=== PATIENT | female | born 1950 | race Caucasian/White ===

== ENCOUNTER 2016-06-21 01:28 | Observation (INO) | payer OTHER, BC ==
[~2016-06-21] VITALS: Ht 165.1 cm; Wt 68.0 kg
[~2016-06-21 01:28] MED LIST: ADVAIR HFA120 INHALA IH; ALDACTONE50 MG PO; AMIODARONE HCL200 MG PO; AMOX TR-K CLV1 EAC4 PO; ASPIR 8181 M1 PO; ASPIR-LOW81 MG PO; ASPIRIN EC325 MG PO; ASPIRIN PO; ATACAND8 MG PO; ATORVASTATIN CA40 MG PO; AZITHROMYCIN250 MG PO; Aspirin E.C. PO; CANDESARTAN CILE8 MG PO; CARVEDILOL12.5 MG PO; CARVEDILOL6.25 MG PO; CEFEPIME HCL2 GM IV; CITROMA296 ML PO; CLOPIDOGREL75 MG PO; COLACE100 MG PO; COREG6.25 M1 PO; COUMADIN2.5 MG PO; CYANOCOBALAM1000 MCG PO; Cardizem CD,Cartia XT,Tiazac PO; DILANTIN BRAND100 MG PO; DILANTIN100 MG PO; DOCUSATE SODIU100 MG PO; FISH OIL 1,2001 EAC4 PO; FISH-FLAX-BORA1 EACH PO; FUROSEMIDE20 MG PO; FUROSEMIDE40 MG PO; LAMICTAL100 MG PO; LAMICTAL150 M1 PO; LAMICTAL200 MG PO; LAMOTRIGINE150 MG PO; LANTUS 10100 UNITS/ SC; LASIX40 MG PO; LEVAQUIN500 MG PO; LISINOPRIL2.5 MG PO; LISINOPRIL5 MG PO; LO-DOSE ASPIRIN81 M2 PO; LOPRESSOR50 MG PO; Lipitor PO; Lopressor PO; MECLIZINE HCL25 MG PO; METOPROLOL SUCC25 MG PO; METOPROLOL TART25 MG PO; MOBIC7.5 MG PO; MYSOLINE250 MG PO; NITROSTAT0.4 MG SL; NORTRIPTYLINE H10 MG PO; PHENYTEK200 MG PO; PRAVASTATIN SOD80 MG PO; PREDNISONE5 MG PO; PRIMIDONE250 MG PO; PROAIR HFA8.5 GM IH; PROTONIX40 MG PO; SPIRIVA RESPIMAT4 GM IH; SPIRIVA1 INHALATI IH; SPIRONOLACTONE25 MG PO; TRAMADOL HCL50 MG PO; TRAZODONE HCL50 MG PO; TYLENOL WITH C1 EACH PO; VIMPAT50 MG PO; VITAMIN D1000 INTUN PO; WARFARIN SODIU2.5 MG PO; ZITHROMAX Z-PA250 MG PO; ZOCOR20 MG PO; Zestril,Prinivil PO
[2016-06-21 02:37] LABS: HEMATOCRIT 40.1 % (36.0-46.0); MCH 29.4 PG (29.0-34.0); MCHC 32.9 G/DL (30.0-36.0); MCV 89.3 FL (83-99); MEAN PLAT.VOLUME 10.1 uM^3 (9.5-12.4); PLATELET COUNT 267 K/uL (156-360); RBC DIS.WIDTH-CV 16.1 % (11.8-14.6); RBC DIS.WIDTH-SD 52.1 % (39-53); RED BLOOD COUNT 4.49 M/uL (3.80-5.20); WHITE BLOOD COUNT 8.6 K/uL (4.1-10.2)
[2016-06-21 02:44] LABS: CHLORIDE 105 mEq/L (99-109); SODIUM 140 mEq/L (136-147)
[2016-06-21 02:46] LABS: GLUCOSE 113 mg/dL (70-99)
[2016-06-21 02:47] LABS: ANION GAP 9 MEQ/L (2-14)
[2016-06-21 02:48] LABS: TOTAL BILIRUBIN 0.3 mg/dL (0.0-1.0)
[2016-06-21 02:50] LABS: ALKALINE PHOSPHATASE 193 IU/L (3-129); GFR ESTIMATE (CALCULATED) > 59 mL/min/
[2016-06-21 02:51] LABS: UREA NITROGEN (BUN) 15 mg/dL (9-23)
[2016-06-21 02:53] LABS: LIPASE 27 U/L (1.0-51.0)
[2016-06-21 02:56] LABS: TROP-I INTERPRETATION NEGATIVE; TROPONIN-I < 0.01 ng/mL (0.0-0.30)
[2016-06-21 04:56] LABS: INFLUENZA A VIRAL ANTIGEN NEGATIVE; INFLUENZA B VIRAL ANTIGEN NEGATIVE
[2016-06-21 07:25] VITALS: BP 166/72
[2016-06-21 07:34] LABS: ADD MIUA? YES; BILIRUBIN NEGATIVE; BLOOD SMALL; COLOR YELLOW ((YELLOW)); GLUCOSE (STRIP) NEGATIVE; KETONES NEGATIVE; LEUKOCYTES NEGATIVE; NITRITE NEGATIVE; PROTEIN (STRIP) 30; UROBILINOGEN 0.2 MG/DL (0.2-1.0)
[2016-06-21 07:37] LABS: SPECIFIC GRAVITY 1.068 (1.000-1.030)
[2016-06-21 07:54] LABS: BACTERIA 1+ /HPF; EPITHELIAL CELLS 1+ /HPF; MUCUS TRACE /LPF; RED BLOOD CELLS 15-20 /HPF (0-5); UCUL ADDED? NO; UNCLASSIFIED CRYSTALS 1+ /HPF; WHITE BLOOD CELLS 0-5 /HPF (0-5)
[2016-06-21 10:01] LABS: TROP-I INTERPRETATION NEGATIVE; TROPONIN-I < 0.01 ng/mL (0.0-0.30)
[2016-06-21 11:00] VITALS: BP 144/69
[2016-06-21] MEDS ORDERED: MYSOLINE250 MG PO (11:15)
[2016-06-21 12:58] LABS: INTER. NORMALIZED RATIO 1.1; PROTHROMBIN TIME 10.8 (9.2-11.2)
[2016-06-21 15:36] LABS: TROP-I INTERPRETATION NEGATIVE; TROPONIN-I 0.02 ng/mL (0.0-0.30)
[2016-06-21 16:00] VITALS: BP 148/71
== END 2016-06-21 16:23 | disposition home or self-care (01) ==
LOC: EME → EDBD 01:28 → EDOF 06:33 → 5WEST 07:27
PROVIDERS: Emergency Medicine; Internal Medicine
DX: R10.9 Unspecified abdominal pain (principal); R11.2 Nausea with vomiting, unspecified; I42.0 Dilated cardiomyopathy; Z95.810 Presence of automatic (implantable) cardiac defibrillator; I25.10 Atherosclerotic heart disease of native coronary artery without angina pectoris; Z95.1 Presence of aortocoronary bypass graft; I35.0 Nonrheumatic aortic (valve) stenosis; G40.919 Epilepsy, unspecified, intractable, without status epilepticus; J44.9 Chronic obstructive pulmonary disease, unspecified; G81.94 Hemiplegia, unspecified affecting left nondominant side; F17.210 Nicotine dependence, cigarettes, uncomplicated; Z91.5 Personal history of self-harm; Z88.8 Allergy status to other drugs, medicaments and biological substances
CPT/HCPCS: 71010; 74177; 80053; 81003; 83605; 83690; 84484; 85027; 85610; 87502; 93005; 94799; 99281; 99285; G0378; J2405; J2765; J3010; J7050

== ENCOUNTER 2016-07-22 18:24 | Emergency (ER) | payer OTHER, BC ==
[~2016-07-22] VITALS: Ht 165.1 cm; Wt 68.6 kg
[2016-07-22 22:11] VITALS: BP 158/94
[2016-07-22] MEDS ORDERED: TYLENOL WITH C1 EACH PO (22:18)
== END 2016-07-22 22:24 | disposition home or self-care (01) ==
LOC: EXP 18:24 → EME 18:24 → EXP 22:24
DX: S32.019A Unspecified fracture of first lumbar vertebra, initial encounter for closed fracture (principal); W19.XXXA Unspecified fall, initial encounter; M85.88 Other specified disorders of bone density and structure, other site; I10 Essential (primary) hypertension; I50.9 Heart failure, unspecified; I25.10 Atherosclerotic heart disease of native coronary artery without angina pectoris; Z95.1 Presence of aortocoronary bypass graft; Z95.5 Presence of coronary angioplasty implant and graft; Z79.01 Long term (current) use of anticoagulants; Z79.82 Long term (current) use of aspirin; F17.200 Nicotine dependence, unspecified, uncomplicated
CPT/HCPCS: 72100; 99281; 99284

== ENCOUNTER 2016-08-01 17:11 | Inpatient (IN) | payer OTHER, BC ==
[~2016-08-01] VITALS: Ht 165.1 cm; Wt 66.0 kg
[2016-08-01 17:42] LABS: HEMATOCRIT 39.1 % (36.0-46.0); MCHC 32.7 G/DL (30.0-36.0); MCV 91.8 FL (83-99); MEAN PLAT.VOLUME 9.6 uM^3 (9.5-12.4); PLATELET COUNT 303 K/uL (156-360); RBC DIS.WIDTH-CV 15.3 % (11.8-14.6); RBC DIS.WIDTH-SD 51.6 % (39-53); RED BLOOD COUNT 4.26 M/uL (3.80-5.20); WHITE BLOOD COUNT 6.6 K/uL (4.1-10.2)
[2016-08-01 17:52] LABS: CHLORIDE 101 mEq/L (99-109); POTASSIUM 3.8 mEq/L (3.7-5.4); SODIUM 141 mEq/L (136-147)
[2016-08-01 17:54] LABS: GLUCOSE 119 mg/dL (70-99)
[2016-08-01 17:55] LABS: ANION GAP 9 MEQ/L (2-14)
[2016-08-01 17:56] LABS: TOTAL BILIRUBIN 0.1 mg/dL (0.0-1.0)
[2016-08-01 17:57] LABS: ALKALINE PHOSPHATASE 178 IU/L (3-129)
[2016-08-01 17:58] LABS: GFR ESTIMATE (CALCULATED) > 59 mL/min/
[2016-08-01 17:59] LABS: UREA NITROGEN (BUN) 9 mg/dL (9-23)
[2016-08-01 22:54] LABS: ADD MIUA? YES; BILIRUBIN NEGATIVE; BLOOD SMALL; COLOR STRAW ((YELLOW)); GLUCOSE (STRIP) NEGATIVE; KETONES NEGATIVE; LEUKOCYTES NEGATIVE; NITRITE NEGATIVE; PROTEIN (STRIP) NEGATIVE; SPECIFIC GRAVITY 1.005 (1.000-1.030); UROBILINOGEN 0.2 MG/DL (0.2-1.0)
[2016-08-01 22:55] LABS: BACTERIA NONE SEEN /HPF; EPITHELIAL CELLS RARE /HPF; MUCUS TRACE /LPF; RED BLOOD CELLS 0-5 /HPF (0-5); UCUL ADDED? NO; WHITE BLOOD CELLS 0-5 /HPF (0-5)
[2016-08-02 03:03] VITALS: BP 150/75
[2016-08-02 07:30] VITALS: BP 162/78
[2016-08-02 08:16] LABS: MAGNESIUM 1.9 mg/dl (1.3-2.7)
[2016-08-02] MEDS ORDERED: NITROGLYCERIN0.4 MG SL (08:35)
[2016-08-02] MEDS ORDERED: FISH OIL 1,2001 EAC4 PO (08:36)
[2016-08-02] MEDS ORDERED: LAMICTAL200 MG PO (08:37)
[2016-08-02] MEDS ORDERED: CLOPIDOGREL75 MG PO (08:38)
[2016-08-02] MEDS ORDERED: DILANTIN100 MG PO (08:38)
[2016-08-02] MEDS ORDERED: WARFARIN SODIU2.5 MG PO (08:39)
[2016-08-02] MEDS ORDERED: SPIRONOLACTONE25 MG PO (08:39)
[2016-08-02] MEDS ORDERED: AMIODARONE HCL200 MG PO (08:39)
[2016-08-02] MEDS ORDERED: ATACAND8 MG PO (08:40)
[2016-08-02] MEDS ORDERED: LO-DOSE ASPIRIN81 M2 PO (08:40)
[2016-08-02] MEDS ORDERED: MYSOLINE250 MG PO (08:41)
[2016-08-02] MEDS ORDERED: NITROSTAT0.4 MG SL (08:53)
[2016-08-02 10:29] VITALS: BP 166/76
[2016-08-02] MEDS ORDERED: VITAMIN B12 100MCG PO (12:01)
[2016-08-02] MEDS ORDERED: NIACIN500 M4 PO (12:02)
[2016-08-02 13:51] LABS: INTER. NORMALIZED RATIO 1.1; PROTHROMBIN TIME 11.4 (9.2-11.2)
[2016-08-02 15:26] VITALS: BP 173/84
[2016-08-02 20:00] VITALS: BP 175/74
[2016-08-03] VITALS (7 sets, daily range): BP systolic 132–178; BP diastolic 60–96
[2016-08-03 07:26] LABS: ANION GAP 9 MEQ/L (2-14); CHLORIDE 99 MEQ/L (99-109); GFR ESTIMATE (CALCULATED) > 59 mL/min/; GLUCOSE 87 mg/dL (70-99); POTASSIUM 3.7 MEQ/L (3.7-5.4); SAMPLE HEMOLYSIS CHECK 0; SAMPLE ICTERIC CHECK 0; SAMPLE LIPEMIA CHECK 0; SODIUM 138 MEQ/L (136-147); UREA NITROGEN (BUN) 6 mg/dL (9-23)
[2016-08-03 07:34] LABS: HEMATOCRIT 38.1 % (36.0-46.0); MCH 29.3 PG (29.0-34.0); MCHC 32.8 G/DL (30.0-36.0); MCV 89.4 FL (83-99); RBC DIS.WIDTH-CV 14.9 % (11.8-14.6); RBC DIS.WIDTH-SD 48.7 % (39-53); RED BLOOD COUNT 4.26 M/uL (3.80-5.20)
[2016-08-03 07:37] LABS: WHITE BLOOD COUNT 4.6 K/uL (4.1-10.2)
[2016-08-03 07:54] LABS: INTER. NORMALIZED RATIO 1.1; PROTHROMBIN TIME 11.4 (9.2-11.2)
[2016-08-03 08:03] LABS: MEAN PLAT.VOLUME 10.1 uM^3 (9.5-12.4); PLAT.SUFFICIENCY ADEQUATE; PLATELET COUNT 274 K/uL (156-360)
[2016-08-04 03:35] VITALS: BP 172/77
[2016-08-04 07:22] LABS: INTER. NORMALIZED RATIO 1.4; PROTHROMBIN TIME 14.9 (9.2-11.2)
[2016-08-04 08:04] VITALS: BP 144/78
[2016-08-04 11:50] VITALS: BP 141/90
[2016-08-04] MEDS ORDERED: DOCUSATE SODIU100 MG PO (12:56)
[2016-08-04] MEDS ORDERED: POLYETHYLENE GL17 GM PO (12:56)
[2016-08-04] MEDS ORDERED: METOPROLOL SUCC25 MG PO (12:56)
[2016-08-04] MEDS ORDERED: CONSTULOSE10 GM/15 M PO (12:56)
[2016-08-04] MEDS ORDERED: ULTRAM50 MG PO (12:58)
== END 2016-08-04 15:01 | disposition home health service (06) | DRG 389 ==
LOC: EME 17:11 → EDOF 08-02 01:51 → 2EAST 08-02 02:59
PROVIDERS: Internal Medicine; Physician Assistant Medical
DX: K56.0 Paralytic ileus (principal); I42.0 Dilated cardiomyopathy; I50.22 Chronic systolic (congestive) heart failure; M48.56XA Collapsed vertebra, not elsewhere classified, lumbar region, initial encounter for fracture; F17.210 Nicotine dependence, cigarettes, uncomplicated; K59.00 Constipation, unspecified; I25.5 Ischemic cardiomyopathy; I25.10 Atherosclerotic heart disease of native coronary artery without angina pectoris; I35.0 Nonrheumatic aortic (valve) stenosis; G40.909 Epilepsy, unspecified, not intractable, without status epilepticus; J44.9 Chronic obstructive pulmonary disease, unspecified; I10 Essential (primary) hypertension; G83.9 Paralytic syndrome, unspecified; I44.7 Left bundle-branch block, unspecified; Z98.61 Coronary angioplasty status; Z95.810 Presence of automatic (implantable) cardiac defibrillator; Z82.49 Family history of ischemic heart disease and other diseases of the circulatory system
CPT/HCPCS: 72131; 74000; 74020; 74177; 80048; 80053; 81003; 83735; 84100; 85027; 85610; 87169; 87177; 99281; 99285; J1650; J1885

== ENCOUNTER 2016-08-13 08:03 | Emergency (ER) | payer OTHER, BC ==
[~2016-08-13] VITALS: Ht 165.1 cm; Wt 69.5 kg
[~2016-08-13 08:03] MED LIST changes: +CONSTULOSE10 GM/15 M PO; +NIACIN500 M4 PO; +NITROGLYCERIN0.4 MG SL; +POLYETHYLENE GL17 GM PO; +ULTRAM50 MG PO; +VITAMIN B12 100MCG PO
[2016-08-13 08:57] LABS: BASOPHIL COUNT 0.1 K/uL (0-0.1); EOSINOPHIL (%) 3.2 % (0-5); EOSINOPHIL COUNT 0.2 K/uL (0-0.3); IMMATURE GRANULOCYTE (%) 0.5 % (0.0-0.7); INSTRUMENT ABS NEUTROPHIL CT 4.9 K/uL; LYMPHOCYTE COUNT 1.2 K/uL (1.0-2.8); MCH 29.5 PG (29.0-34.0); MCHC 32.4 G/DL (30.0-36.0); MCV 91.1 FL (83-99); MEAN PLAT.VOLUME 10.5 uM^3 (9.5-12.4); MONOCYTE (%) 12.1 % (3-12); MONOCYTE COUNT 0.9 K/uL (0-0.8); NEUTROPHIL (%) 66.8 % (45-76); NEUTROPHIL COUNT 4.9 K/uL (1.8-6.4); PLATELET COUNT 237 K/uL (156-360); RBC DIS.WIDTH-SD 50.2 % (39-53); RED BLOOD COUNT 4.17 M/uL (3.80-5.20)
[2016-08-13 09:00] LABS: WHITE BLOOD COUNT 7.3 K/uL (4.1-10.2)
[2016-08-13 09:07] LABS: PROTHROMBIN TIME 10.4 (9.2-11.2); PTT 23.9 (25-32)
[2016-08-13 09:08] LABS: CHLORIDE 104 mEq/L (99-109); POTASSIUM 3.9 mEq/L (3.7-5.4); SODIUM 139 mEq/L (136-147)
[2016-08-13 09:10] LABS: GLUCOSE 97 mg/dL (70-99)
[2016-08-13 09:11] LABS: ANION GAP 9 MEQ/L (2-14)
[2016-08-13 09:13] LABS: GFR ESTIMATE (CALCULATED) > 59 mL/min/
[2016-08-13 09:14] LABS: UREA NITROGEN (BUN) 6 mg/dL (9-23)
[2016-08-13 09:18] LABS: TROP-I INTERPRETATION NEGATIVE; TROPONIN-I < 0.01 ng/mL (0.0-0.30)
[2016-08-13 11:45] VITALS: BP 143/92
== END 2016-08-13 11:52 | disposition home or self-care (01) ==
LOC: EME → EDBD 08:03 → EME 08:03
PROVIDERS: Emergency Medicine
DX: S20.212A Contusion of left front wall of thorax, initial encounter (principal); W18.39XA Other fall on same level, initial encounter; R42 Dizziness and giddiness; S22.42XD Multiple fractures of ribs, left side, subsequent encounter for fracture with routine healing; I10 Essential (primary) hypertension; Z95.0 Presence of cardiac pacemaker; Z95.1 Presence of aortocoronary bypass graft; Z95.5 Presence of coronary angioplasty implant and graft; Z79.01 Long term (current) use of anticoagulants; Z79.82 Long term (current) use of aspirin; F17.200 Nicotine dependence, unspecified, uncomplicated
CPT/HCPCS: 70450; 71101; 80048; 84484; 85025; 85610; 85730; 93005; 99281; 99285; J2270

== ENCOUNTER 2016-10-10 22:43 | Emergency (ER) | payer OTHER, BC ==
[~2016-10-10] VITALS: Ht 165.1 cm; Wt 77.9 kg
[2016-10-10 23:48] LABS: HEMATOCRIT 38.4 % (36.0-46.0); MCH 29.3 PG (29.0-34.0); MCHC 32.8 G/DL (30.0-36.0); MCV 89.3 FL (83-99); MEAN PLAT.VOLUME 10.1 uM^3 (9.5-12.4); PLATELET COUNT 214 K/uL (156-360); RBC DIS.WIDTH-CV 14.8 % (11.8-14.6); RBC DIS.WIDTH-SD 48.3 % (39-53); WHITE BLOOD COUNT 9.2 K/uL (4.1-10.2)
[2016-10-11 00:02] LABS: CHLORIDE 98 mEq/L (99-109); POTASSIUM 3.6 mEq/L (3.7-5.4); SODIUM 132 mEq/L (136-147)
[2016-10-11 00:04] LABS: GLUCOSE 116 mg/dL (70-99)
[2016-10-11 00:05] LABS: ANION GAP 9 MEQ/L (2-14); PROTHROMBIN TIME 10.4 (9.2-11.2); PTT 25.8 (25-32)
[2016-10-11 00:06] LABS: TOTAL BILIRUBIN 0.2 mg/dL (0.0-1.0)
[2016-10-11 00:07] LABS: ALKALINE PHOSPHATASE 157 IU/L (3-129)
[2016-10-11 00:08] LABS: GFR ESTIMATE (CALCULATED) > 59 mL/min/
[2016-10-11 00:09] LABS: UREA NITROGEN (BUN) 17 mg/dL (9-23)
[2016-10-11 00:11] LABS: LIPASE 34 U/L (1.0-51.0)
[2016-10-11 00:16] LABS: CK-MB 1.7 ng/mL (0.0-4.9)
[2016-10-11 02:33] LABS: SAMPLE HEMOLYSIS CHECK 0; SAMPLE ICTERIC CHECK 0; SAMPLE LIPEMIA CHECK 0
[2016-10-11 03:23] LABS: CREATINE KINASE 75 IU/L (1-294); TOTAL CK 75 IU/L (1-294)
[2016-10-11 03:37] VITALS: BP 164/99
== END 2016-10-11 03:43 | disposition home or self-care (01) ==
LOC: EME → EDBD 22:43 → EME 10-11 03:43
PROVIDERS: Emergency Medicine
DX: G40.909 Epilepsy, unspecified, not intractable, without status epilepticus (principal); I10 Essential (primary) hypertension; E87.1 Hypo-osmolality and hyponatremia; J44.9 Chronic obstructive pulmonary disease, unspecified; I25.10 Atherosclerotic heart disease of native coronary artery without angina pectoris; I25.2 Old myocardial infarction; Z95.1 Presence of aortocoronary bypass graft; Z95.5 Presence of coronary angioplasty implant and graft; I50.9 Heart failure, unspecified; E78.5 Hyperlipidemia, unspecified; F32.9 Major depressive disorder, single episode, unspecified; K21.9 Gastro-esophageal reflux disease without esophagitis; F17.200 Nicotine dependence, unspecified, uncomplicated; Z79.01 Long term (current) use of anticoagulants; Z79.899 Other long term (current) drug therapy
CPT/HCPCS: 70450; 80053; 80185; 81003; 82550; 82553; 83690; 85027; 85610; 85730; 99281; 99284

== ENCOUNTER 2017-03-31 22:41 | Observation (INO) | payer OTHER, BC ==
[~2017-03-31] VITALS: Ht 165.1 cm; Wt 75.5 kg
[2017-04-01 00:06] LABS: BASOPHIL COUNT 0.1 K/uL (0-0.1); EOSINOPHIL (%) 1.1 % (0-5); EOSINOPHIL COUNT 0.1 K/uL (0-0.3); IMMATURE GRANULOCYTE (%) 0.6 % (0.0-0.7); IMMATURE GRANULOCYTE COUNT 0.1 K/uL; INSTRUMENT ABS NEUTROPHIL CT 9.4 K/uL; MCHC 32.8 G/DL (30.0-36.0); MCV 88.2 FL (83-99); MEAN PLAT.VOLUME 10.7 uM^3 (9.5-12.4); MONOCYTE (%) 8.9 % (3-12); MONOCYTE COUNT 1.1 K/uL (0-0.8); NEUTROPHIL COUNT 9.4 K/uL (1.8-6.4); PLATELET COUNT 191 K/uL (156-360); RBC DIS.WIDTH-CV 15.7 % (11.8-14.6); RBC DIS.WIDTH-SD 50.6 % (39-53); RED BLOOD COUNT 4.42 M/uL (3.80-5.20); WHITE BLOOD COUNT 11.8 K/uL (4.1-10.2)
[2017-04-01 00:14] LABS: CHLORIDE 102 mEq/L (99-109); POTASSIUM 3.4 mEq/L (3.7-5.4); SODIUM 139 mEq/L (136-147)
[2017-04-01 00:16] LABS: GLUCOSE 112 mg/dL (70-99)
[2017-04-01 00:18] LABS: ANION GAP 12 MEQ/L (2-14)
[2017-04-01 00:20] LABS: GFR ESTIMATE (CALCULATED) > 59 mL/min/
[2017-04-01 00:21] LABS: UREA NITROGEN (BUN) 13 mg/dL (9-23)
[2017-04-01 00:23] LABS: CREATINE KINASE 104 IU/L (1-294)
[2017-04-01 05:48] LABS: ADD MIUA? YES; BILIRUBIN NEGATIVE; BLOOD SMALL; COLOR YELLOW ((YELLOW)); GLUCOSE (STRIP) NEGATIVE; KETONES NEGATIVE; LEUKOCYTES NEGATIVE; NITRITE NEGATIVE; PROTEIN (STRIP) 100; SPECIFIC GRAVITY 1.019 (1.000-1.030); UROBILINOGEN 0.2 MG/DL (0.2-1.0)
[2017-04-01 05:53] LABS: BACTERIA NONE SEEN /HPF; EPITHELIAL CELLS RARE /HPF; MUCUS TRACE /LPF; UCUL ADDED? NO; WHITE BLOOD CELLS 0-5 /HPF (0-5)
[2017-04-01 06:06] LABS: PROTHROMBIN TIME 11.6 SEC (10.2-12.9)
[2017-04-01 07:49] VITALS: BP 148/86
[2017-04-01 11:38] VITALS: BP 125/89
[2017-04-01] MEDS ORDERED: MYSOLINE250 MG PO (14:56)
[2017-04-01] MEDS ORDERED: DILANTIN100 MG PO ×3 (14:59→15:01)
[2017-04-01] MEDS ORDERED: LAMOTRIGINE200 MG PO ×2 (15:02→15:03)
[2017-04-01 15:08] VITALS: BP 165/85
[2017-04-01 20:40] VITALS: BP 142/80
[2017-04-01 23:47] VITALS: BP 148/83
[2017-04-02 06:50] LABS: HEMATOCRIT 36.1 % (36.0-46.0); MCH 28.2 PG (29.0-34.0); MCHC 31.6 G/DL (30.0-36.0); MCV 89.4 FL (83-99); MEAN PLAT.VOLUME 10.9 uM^3 (9.5-12.4); PLATELET COUNT 184 K/uL (156-360); RBC DIS.WIDTH-CV 15.9 % (11.8-14.6); RBC DIS.WIDTH-SD 52.4 % (39-53); RED BLOOD COUNT 4.04 M/uL (3.80-5.20)
[2017-04-02 07:12] LABS: ALKALINE PHOSPHATASE 113 IU/L (3-129); ANION GAP 7 MEQ/L (2-14); CHLORIDE 105 MEQ/L (99-109); GFR ESTIMATE (CALCULATED) > 59 mL/min/; GLUCOSE 89 mg/dL (70-99); POTASSIUM 3.7 MEQ/L (3.7-5.4); SAMPLE HEMOLYSIS CHECK 0; SAMPLE ICTERIC CHECK 0; SAMPLE LIPEMIA CHECK 0; SODIUM 142 MEQ/L (136-147); TOTAL BILIRUBIN 0.3 MG/DL (0.0-1.0); UREA NITROGEN (BUN) 7 mg/dL (9-23)
[2017-04-02 09:31] VITALS: BP 144/82
[2017-04-02 12:20] VITALS: BP 167/78
[2017-04-02] MEDS ORDERED: MYSOLINE250 MG PO (15:20)
[2017-04-02 16:10] VITALS: BP 153/79
== END 2017-04-02 19:45 | disposition home or self-care (01) ==
LOC: EME → EDBD 22:41 → EME 22:41 → 5SOUTH 04-01 05:28 → EDOF 04-01 05:28 → 5SOUTH 04-01 05:28 → ENRESERV 04-01 05:29 → 5SOUTH 04-01 07:25
PROVIDERS: Emergency Medicine; Physician Assistant
DX: G40.901 Epilepsy, unspecified, not intractable, with status epilepticus (principal); I11.0 Hypertensive heart disease with heart failure; I50.23 Acute on chronic systolic (congestive) heart failure; I25.10 Atherosclerotic heart disease of native coronary artery without angina pectoris; I25.5 Ischemic cardiomyopathy; I35.0 Nonrheumatic aortic (valve) stenosis; J44.9 Chronic obstructive pulmonary disease, unspecified; E78.5 Hyperlipidemia, unspecified; I44.7 Left bundle-branch block, unspecified; R42 Dizziness and giddiness; S06.899S Other specified intracranial injury with loss of consciousness of unspecified duration, sequela; Z95.1 Presence of aortocoronary bypass graft; Z95.5 Presence of coronary angioplasty implant and graft; F17.200 Nicotine dependence, unspecified, uncomplicated; K21.9 Gastro-esophageal reflux disease without esophagitis; I25.2 Old myocardial infarction; Z95.810 Presence of automatic (implantable) cardiac defibrillator; Z79.01 Long term (current) use of anticoagulants; Z79.82 Long term (current) use of aspirin; Z88.8 Allergy status to other drugs, medicaments and biological substances; Z90.710 Acquired absence of both cervix and uterus
CPT/HCPCS: 70450; 80048; 80053; 80175 90; 80185; 81003; 82550; 83735; 84100; 85025; 85027; 85610; 93005; 99281; 99285; G0378; J1165; J1650; J7030; J7050

== ENCOUNTER 2017-07-08 20:02 | Emergency (ER) | payer OTHER, BC ==
[~2017-07-08] VITALS: Ht 165.1 cm; Wt 73.4 kg
[~2017-07-08 20:02] MED LIST changes: +LAMOTRIGINE200 MG PO
[2017-07-08 23:00] VITALS: BP 128/76
== END 2017-07-08 23:15 | disposition home or self-care (01) ==
LOC: RME 20:02 → EME 20:02 → RME 23:15
DX: M79.662 Pain in left lower leg (principal); I11.0 Hypertensive heart disease with heart failure; I50.9 Heart failure, unspecified; J44.9 Chronic obstructive pulmonary disease, unspecified; E78.5 Hyperlipidemia, unspecified; F17.200 Nicotine dependence, unspecified, uncomplicated; F32.9 Major depressive disorder, single episode, unspecified; I25.2 Old myocardial infarction; K21.9 Gastro-esophageal reflux disease without esophagitis; I25.10 Atherosclerotic heart disease of native coronary artery without angina pectoris; F41.9 Anxiety disorder, unspecified; Z95.5 Presence of coronary angioplasty implant and graft; Z95.1 Presence of aortocoronary bypass graft; R56.9 Unspecified convulsions; Z79.82 Long term (current) use of aspirin
CPT/HCPCS: 93971; 99281; 99283

== ENCOUNTER 2017-07-11 14:57 | Emergency (ER) | payer OTHER, BC ==
[~2017-07-11] VITALS: Ht 165.1 cm; Wt 78.8 kg
[2017-07-11 15:45] LABS: HEMATOCRIT 39.3 % (36.0-46.0); HEMOGLOBIN 13.4 G/DL (11.9-15.5); MCH 30.2 PG (29.0-34.0); MCHC 34.1 G/DL (30.0-36.0); MCV 88.7 FL (83-99); RBC DIS.WIDTH-CV 15.9 % (11.8-14.6); RED BLOOD COUNT 4.43 M/uL (3.80-5.20); WHITE BLOOD COUNT 8.6 K/uL (4.1-10.2)
[2017-07-11 15:48] LABS: PLATELET COUNT 234 K/uL (156-360)
[2017-07-11 16:00] LABS: CHLORIDE 91 mEq/L (99-109); POTASSIUM 3.4 mEq/L (3.7-5.4); SODIUM 135 mEq/L (136-147)
[2017-07-11 16:03] LABS: GLUCOSE 119 mg/dL (70-99)
[2017-07-11 16:05] LABS: TOTAL BILIRUBIN 0.2 mg/dL (0.0-1.0)
[2017-07-11 16:06] LABS: ALKALINE PHOSPHATASE 137 IU/L (3-129); CREATININE 0.8 mg/dL (0.6-1.3); GFR ESTIMATE (CALCULATED) > 59 mL/min/
[2017-07-11 16:08] LABS: AST (GOT) 15 IU/L (2-34); DIRECT BILIRUBIN 0.1 mg/dL (0.0-0.3); TROP-I INTERPRETATION NEGATIVE; TROPONIN-I < 0.01 ng/mL (0.0-0.30); UREA NITROGEN (BUN) 13 mg/dL (9-23)
[2017-07-11 16:09] LABS: ALT (GPT) 11 IU/L (3-49)
[2017-07-11 16:10] LABS: LIPASE 27 U/L (1.0-51.0)
[2017-07-11 16:34] LABS: APPEARANCE CLEAR ((CLEAR)); BILIRUBIN NEGATIVE; BLOOD SMALL; COLOR STRAW ((YELLOW)); GLUCOSE (STRIP) NEGATIVE; KETONES NEGATIVE; LEUKOCYTES NEGATIVE; NITRITE NEGATIVE; PROTEIN (STRIP) NEGATIVE; SPECIFIC GRAVITY 1.008 (1.000-1.030); UROBILINOGEN 0.2 MG/DL (0.2-1.0)
[2017-07-11 16:41] LABS: BACTERIA NONE SEEN /HPF; EPITHELIAL CELLS RARE /HPF; MUCUS NONE SEEN /LPF; RED BLOOD CELLS 0-5 /HPF (0-5); UCUL ADDED? NO; WHITE BLOOD CELLS 0-5 /HPF (0-5)
[2017-07-11] MEDS ORDERED: ZOFRAN4 MG PO (18:11)
[2017-07-11 19:09] VITALS: BP 113/79
== END 2017-07-11 19:11 | disposition home or self-care (01) ==
LOC: EME 14:57
PROVIDERS: Emergency Medicine
DX: R11.2 Nausea with vomiting, unspecified (principal); T42.75XA Adverse effect of unspecified antiepileptic and sedative-hypnotic drugs, initial encounter; T46.2X5A Adverse effect of other antidysrhythmic drugs, initial encounter; T46.3X5A Adverse effect of coronary vasodilators, initial encounter; E78.5 Hyperlipidemia, unspecified; F32.9 Major depressive disorder, single episode, unspecified; F41.9 Anxiety disorder, unspecified; I11.0 Hypertensive heart disease with heart failure; I25.10 Atherosclerotic heart disease of native coronary artery without angina pectoris; I50.9 Heart failure, unspecified; I25.2 Old myocardial infarction; J44.9 Chronic obstructive pulmonary disease, unspecified; K21.9 Gastro-esophageal reflux disease without esophagitis; R56.9 Unspecified convulsions; Z95.0 Presence of cardiac pacemaker; Z95.1 Presence of aortocoronary bypass graft; Z95.5 Presence of coronary angioplasty implant and graft; F17.200 Nicotine dependence, unspecified, uncomplicated; Z79.82 Long term (current) use of aspirin; Z88.8 Allergy status to other drugs, medicaments and biological substances
CPT/HCPCS: 71045; 80048; 80076; 81003; 83690; 84484; 85027; 87086; 99281; 99285; J2405

== ENCOUNTER 2017-09-21 07:28 | Emergency (ER) | payer OTHER, BC ==
[~2017-09-21] VITALS: Ht 165.1 cm; Wt 70.4 kg
[~2017-09-21 07:28] MED LIST changes: +ZOFRAN4 MG PO
[2017-09-21 08:03] LABS: HEMATOCRIT 39.2 % (36.0-46.0); HEMOGLOBIN 13.5 G/DL (11.9-15.5); MCH 30.8 PG (29.0-34.0); MCHC 34.4 G/DL (30.0-36.0); MCV 89.5 FL (83-99); RBC DIS.WIDTH-CV 14.9 % (11.8-14.6); RBC DIS.WIDTH-SD 49.1 % (39-53); RED BLOOD COUNT 4.38 M/uL (3.80-5.20)
[2017-09-21 08:12] LABS: PTT 27.5 SEC (25-37)
[2017-09-21 08:23] LABS: CHLORIDE 90 MEQ/L (99-109); POTASSIUM 3.1 MEQ/L (3.7-5.4); SODIUM 136 MEQ/L (136-147); TOTAL BILIRUBIN 0.3 MG/DL (0.0-1.0)
[2017-09-21 08:28] LABS: ALKALINE PHOSPHATASE 117 IU/L (3-129); ALT (GPT) 9 IU/L (3-49); AST (GOT) 16 IU/L (2-34); CREATININE 1.2 MG/DL (0.6-1.3); GFR ESTIMATE (CALCULATED) 47 mL/min/; GLUCOSE 124 mg/dL (70-99); TOTAL PROTEIN 7.2 G/DL (6.4-8.3); UREA NITROGEN (BUN) 36 mg/dL (9-23)
[2017-09-21 08:39] LABS: PLAT.SUFFICIENCY ADEQUATE; PLATELET COUNT 253 K/uL (156-360)
[2017-09-21 11:07] VITALS: BP 119/72
== END 2017-09-21 11:10 | disposition home or self-care (01) ==
LOC: EME 07:28
PROVIDERS: Emergency Medicine Emergency Medical Services
PROC: 0HQ0XZZ Repair Scalp Skin, External Approach (ICD-10-PCS; principal; 2017-09-21)
DX: S01.01XA Laceration without foreign body of scalp, initial encounter (principal); S06.0X0A Concussion without loss of consciousness, initial encounter; W19.XXXA Unspecified fall, initial encounter; Z79.01 Long term (current) use of anticoagulants; E78.5 Hyperlipidemia, unspecified; F32.9 Major depressive disorder, single episode, unspecified; F41.9 Anxiety disorder, unspecified; Z79.82 Long term (current) use of aspirin; I11.0 Hypertensive heart disease with heart failure; I50.9 Heart failure, unspecified; I25.10 Atherosclerotic heart disease of native coronary artery without angina pectoris; I25.2 Old myocardial infarction; J44.9 Chronic obstructive pulmonary disease, unspecified; K21.9 Gastro-esophageal reflux disease without esophagitis; Z95.5 Presence of coronary angioplasty implant and graft; Z95.1 Presence of aortocoronary bypass graft; F17.200 Nicotine dependence, unspecified, uncomplicated
CPT/HCPCS: 70450; 72125; 80053; 85027; 85610; 85730; 99281; 99285